=== PATIENT | male | born 1985 | race Caucasian/White ===

== ENCOUNTER 2020-04-03 11:03 | Day surgery (SDC) | payer BC ==
[2020-04-02 15:38] LABS: Absolute Lymphocytes (CBC) 2.2 K/uL (0.7-4.9); Basophils % 0.7 % (0-1.3); Hematocrit 49.5 % (39.6-49.0); Lymphocytes % 21.5 % (15.3-44.8); MPV 8.7 fL (7.6-11.3); RBC Red Blood Cell Count 5.64 M/uL (4.33-5.43)
[2020-04-02 16:02] LABS: Albumin 3.9 g/dL (3.4-5.0); Bilirubin Direct 0.2 mg/dL (0-0.2); Bilirubin Total 0.8 mg/dL (0.2-1.0); Potassium 3.9 mmol/L (3.5-5.1); Protein, Total 7.9 g/dL (6.4-8.2)
--- OUTSIDE RECORDS SUMMARY | 2020-04-03 11:28 | XMS REPORT | Summary of Care ---
:1985 Author Organization [facility] Address [address] [place] [address] Care Team Providers Name Role Phone Aayush Abbott MD Primary Care Provider Reason for Visit Reason Comments Refill Request Encounter Details Date Type Department Care Team Description 01/06/2020 Refill [facility] Pediatric and Deep Cope MD Refill Request Adult Primary Care- [address] [place] [address] [place] [address], [address] [place] [address] Allergies No Known Allergiesdocumented as of this encounter (statuses as of 01/06/2020) Medications Medication Sig Dispensed Refills Start Date End Date Status amphetamine-dext Take 1 30 capsule 0 01/06/2020 A ctive roamphetamine capsule by (ADDERALL XR) 30 mouth every mg 24 hr morning. capsuleIndicatio ns: Attention deficit disorder (ADD) in adult amphetamine-dext Take 1 30 capsule 0 12/03/2019 D iscontinued roamphetamine capsule by 0 (Reor harriet) (ADDERALL XR) 30 mouth every mg 24 hr morning. capsuleIndicatio ns: Attention deficit disorder (ADD) in adult documented as of this encounter (statuses as of 01/06/2020) Active Problems Not on filedocumented as of this encounter (statuses as of 01/06/2020) Immunizations Name Administration Dates Next Due Td 10/10/2015 documented as of this encounter Social History Tobacco Use Types Packs/Day Years Used Date Never Smoker Smokeless Tobacco: Current User Snuff Alcohol Use Drinks/Week oz/Week Comments Not Currently Sex Assigned at Date Recorded Not on file documented as of this encounter Last Filed Vital Signs Not on filedocumented in this encounter Plan of Treatment Health Maintenance Due Date Last Done Comments VARICELLA VACCINES (1 of 2 - 1987 2-dose childhood series) DTaP,Tdap,and Td Vaccines (1 - 2005 10/10/2015 Tdap) INFLUENZA VACCINE (#1) 2020 Depression Screening 03/20/2020 03/20/2019 PNEUMOCOCCAL 0-64 YEARS COMBINED Aged Out No longer eligible based on SERIES patient's age to complete this topic documented as of this encounter Results Not on filedocumented in this encounter Visit Diagnoses Diagnosis Attention deficit disorder (ADD) in adul t documented in this encounter Insurance Payer Benefit Plan Subscriber ID Effective Dates Phone Address Type / Group BCBS [facility] [id number] 2017-August [phone] [address] PPO/POS [place] - OUT OF t 7 [id number] [place] [address] documented as of this encounter
--- OUTSIDE RECORDS SUMMARY | 2020-04-03 11:28 | XMS REPORT | Continuity of Care Document ---
:1985 Author Organization [facility] t Address [address] [place] [address] Care Team Providers Name Role Phone Milena SMITH, Aayush Attending Clinician Problems This patient has no known problems. Allergies, Adverse Reactions, Alerts This patient has no known allergies or adverse reactions. Medications This patient has no known medications. Procedures This patient has no known procedures. Encounters Start End Encounter Admission Attending Care Care Encounter Source Date/Time Date/Time Type Type Clinicians Facility Department ID 2020-03-30 2020-03-30 Office WOLFGANG Abbott [id number] 10:17:13 10:32:13 Visit [facility] [id number] Aayush Sharma [id number] Amairani [id number] nal 044 Office [address] One Results This patient has no known results.
--- OUTSIDE RECORDS SUMMARY | 2020-04-03 11:28 | XMS REPORT | Summary of Care ---
:1985 Author Organization [facility] Address [address] [place] [address] Care Team Providers Name Role Phone Aayush Abbott MD Primary Care Provider Reason for Visit Reason Comments Refill Request Encounter Details Date Type Department Care Team Description 02/06/2020 Refill [facility] Family Medicine Deep Brown MD Refill Request - [address] [place] [address] [place] [address] [phone] Allergies No Known Allergiesdocumented as of this encounter (statuses as of 02/06/2020) Medications Medication Sig Dispensed Refills Start Date End Date Status amphetamine-dext Take 1 30 capsule 0 02/06/2020 A ctive roamphetamine capsule by (ADDERALL XR) 30 mouth every mg 24 hr morning. capsuleIndicatio ns: Attention deficit disorder (ADD) in adult amphetamine-dext Take 1 30 capsule 0 01/06/2020 D iscontinued roamphetamine capsule by 0 (Reor harriet) (ADDERALL XR) 30 mouth every mg 24 hr morning. capsuleIndicatio ns: Attention deficit disorder (ADD) in adult documented as of this encounter (statuses as of 02/06/2020) Active Problems Not on filedocumented as of this encounter (statuses as of 02/06/2020) Immunizations Name Administration Dates Next Due Td 10/10/2015 documented as of this encounter Social History Tobacco Use Types Packs/Day Years Used Date Never Smoker Smokeless Tobacco: Current User Snuff Alcohol Use Drinks/Week oz/Week Comments Not Currently Sex Assigned at Date Recorded Not on file documented as of this encounter Last Filed Vital Signs Not on filedocumented in this encounter Miscellaneous Notes Telephone Encounter - Bev Salgado - 02/06/2020 10:40 AM CDT Last office visit 09/16/19 Last refill was amphetamine-dextroamphetamine (ADDERALL XR) 30 mg 24 hr capsule 30 capsule 0 01/06/2020 -- elephone Encounter - Tayla Rubio - 02/06/2020 10:13 AM CDTPt requesting name brand. documented in this encounter Plan of Treatment Health [...] Dates Phone Address Type / Group BCBS [facility] [id number] 2017-August [phone] [address] PPO/POS [place] - OUT OF t 7 [id number] [place] [address] documented as of this encounter
--- OUTSIDE RECORDS SUMMARY | 2020-04-03 11:29 | XMS REPORT | Summary of Care ---
:1985 Author Organization [facility] Address [address] [place] [address] Care Team Providers Name Role Phone Aayush Abbott MD Primary Care Provider Reason for Referral (Routine) Status Reason Specialty Diagnoses / Procedures Referred By Luis bhaktaerred To Contact Contact New Request Diagnoses Calculus of gallbladder with acute cholecystitis without obstruction Deep Abbott [place], Procedures CONSULT/REFERRAL GENERAL SURGERY MD LUIS Looney [address] [place] [address] [place] [address] Sam 2.100 Phone: Constance Barnes [phone] Fax: Reason for Visit Reason [facility] Hospital F/U kidney and gallbladder stone s Kidney Stones GALLBLADDER Encounter Details Date Type Department Care Team Description 03/30/2020 Office Visit [facility] Family Deep Abbott Calculu s of gallbladder with acute cholecystitis without obstruction (Primary Dx); Medicine - Zachary Looney MD Kidney stone on right side [address] [place] [address] [place] [phone] Allergies No Known Allergiesdocumented as of this encounter (statuses as of 03/30/2020) Medications Medication Sig Dispensed Refills Start Date End Date Status ADDERALL XR 30 mg 24 hr Take 1 capsule 30 capsule 0 03/11/2020 Active capsuleIndications: by mouth every Attention deficit morning. Fill disorder (ADD) in adult Brand Name Only ciprofloxacin HCl 500 TK 1 T PO BID 0 03/24/2020 Active mg tablet ketorolac 10 mg tablet TK 1 T PO Q 8 H 0 03/24/2020 Active PRF PAIN ondansetron 4 mg DIS 1 T ON THE 0 03/24/2020 Active disintegrating tablet TONGUE TID PRF NAUSEA tamsulosin 0.4 mg 24 hr TK 1 C PO QD 0 03/24/2020 Active capsule documented as of this encounter (statuses as of 03/30/2020) Active Problems Not on filedocumented as of this encounter (statuses as of 03/30/2020) Immunizations Name Administration Dates Next Due Td 10/10/2015 documented as of this encounter Social History Tobacco Use Types Packs/Day Years Used Date Never Smoker Smokeless Tobacco: Current User Snuff Tobacco Cessation: Ready to Quit: No; Co unseling Given: Yes Alcohol Use Drinks/Week oz/Week Comments Not Currently Sex Assigned at Date Recorded Not on file COVID-19 Exposure Response Date Recorded In the last month, have you been in contact with No / Unsure 03/30/2020 10:28 AM CDT someone who was confirmed or suspected to have Coronavirus / COVID-19? documented as of this encounter Last Filed Vital Signs Vital Sign Reading Time Taken Comments Blood Pressure 147/110 03/30/2020 10:26 AM CDT Pulse - - Temperature - - Respiratory Rate - - Oxygen Saturation - - Inhaled Oxygen Concentration - - Weight 105.2 kg (232 lb) 03/30/2020 10:26 AM CDT Height 172.7 cm (5' 8") 03/30/2020 10:26 AM CDT Body Mass Index 35.28 03/30/2020 10:26 AM CDT documented in this encounter Progress Deep Canas MD - 03/30/2020 10:30 AM CDT CC: follow up ER from gallstones and kidney stone Corby is a 35 year old male Abdominal Pain Pain location: RUQ Pain quality: aching Pain quality: no pressure Pain radiates to: R flank Pain severity: Severe Duration: 6 days Timing: Intermittent Associated symptoms: belching, nausea and vomiting Associated symptoms: no diarrhea No Known Allergies Current Outpatient Medications Medication Sig Dispense Refill ADDERALL XR 30 mg 24 hr capsule Take 1 capsule by mouth every morning. Fill Brand Name Only 30 capsule 0 No current facility-administered medications for this visit. Past Medical History: Diagnosis Date ADHD (attention deficit hyperactivity disorder) No past surgical history on file. Social History Socioeconomic History Marital status: Single Spouse name: Not on file Number of children: Not on file Years of education: Not on file Highest education level: Not on file Occupational History Not on file Social Needs Financial resource strain: Not on file Food insecurity Worry: Not on file Inability: Not on file Transportation needs Medical: Not on file Non-medical: Not on file Tobacco Use Smoking status: Never Smoker Smokeless tobacco: Current User Types: Snuff Substance and Sexual Activity Alcohol use: Not Currently Drug use: Never Sexual activity: Yes Partners: Female Lifestyle Physical activity Days per week: Not on file Minutes per session: Not on file Stress: Not on file Relationships Social connections Talks on phone: Not on file Gets together: Not on file Attends sabianism service: Not on file Active member of club or organization: Not on file Attends meetings of clubs or organizations: Not on file Relationship status: Not on file Intimate partner violence Fear of current or ex partner: Not on file Emotionally abused: Not on file Physically abused: Not on file Forced sexual activity: Not on file Other Topics Concern Not on file Social History Narrative Works in the [employer] Family History Problem Relation Age of Onset Diabetes Father Review of Systems Gastrointestinal: Positive for abdominal pain, nausea and vomiting. Negative for diarrhea. BP (!) 147/110 (BP Location: Left arm, Patient Position: Sitting, BP CUFF SIZE: Adult Large) | Ht 5' 8" (1.727 m) | Wt 232 lb (105.2 kg) | BMI 35.28 kg/m Physical Exam Constitutional: He is oriented to person, place, and time. He appears well- developed and well-nourished. HENT: Head: Normocephalic and atraumatic. Eyes: Conjunctivae are normal. Neck: Normal range of motion. Neck supple. No JVD present. No tracheal deviation present. No thyromegaly present. Cardiovascular: Normal rate, regular rhythm, normal heart sounds and intact distal pulses. Exam reveals no gallop and no friction rub. No murmur heard. Pulmonary/Chest: Effort normal and breath sounds normal. No respiratory distress. He has no wheezes.He has no rales. He exhibits no tenderness. Abdominal: Soft. Bowel sounds are normal. He exhibits no distension and no mass. There is no abdominal tenderness. There is no rebound and no guarding. Musculoskeletal: Normal range of motion. General: No tenderness or edema. Lymphadenopathy: He has no cervical adenopathy. Neurological: He is alert and oriented to person, place, and time. Skin: Skin is warm and dry. Diagnosis: 1. Calculus of gallbladder with acute cholecystitis without obstruction CONSULT/REFERRAL GENERAL SURGERY 2. Kidney stone on right side Follow up: prn Patient Care Team: Deep Abbott MD as PCP - General ([facility]-FAMILY MEDICINE) Plan of care, desired health behaviors, goals,& medication discussed with patient. Education resources & self management tools provided and reviewed with AVS. Patient/guardian/family verbalized understanding & agrees to plan of care. Barriers to care: None Ability to manage care: Good documented in this encounter Plan of Treatment Date Type Specialty Care Team Description 07/14/2020 Office Visit Family Medicine Deep Abbott MD [address] [place] [address] [phone] Health Maintenance Due Date Last Done Comments VARICELLA VACCINES (1 of 2 - 1987 2-dose childhood series) DTaP,Tdap,and Td Vaccines (1 - 2005 10/10/2015 Tdap) INFLUENZA VACCINE (#1) 2020 Depression Screening 03/11/2021 03/11/2020 PNEUMOCOCCAL 0-64 YEARS COMBINED Aged Out No longer eligible based on SERIES patient's age to complete this topic documented as of this encounter Results Not on filedocumented in this encounter Visit Diagnoses Diagnosis Calculus of gallbladder with acute lupis cystitis without obstruction - Primary Calculus of gallbladder with acute lupis cystitis, without mention of obstruction Kidney stone on right side Calculus of kidney documented in this encounter Insurance Payer Benefit Plan Subscriber ID Effective Dates Phone Address Type / Group [facility] [id number] 2017-August [phone] [address] PPO/POS [place] - OUT OF t 7 [id number] [place] [address] documented as of this encounter
--- OUTSIDE RECORDS SUMMARY | 2020-04-03 11:29 | XMS REPORT | Summary of Care ---
:1985 Author Organization [facility] Address [address] [place] [address] Care Team Providers Name Role Phone Aayush Abbott MD Primary Care Provider Reason for Referral (Routine) Status Reason Specialty Diagnoses / Procedures Referred By Luis bhaktaerred To Contact Contact New Request Diagnoses Calculus of gallbladder with acute cholecystitis without obstruction Deep Abbott [place], Procedures CONSULT/REFERRAL GENERAL SURGERY MD LUIS Looney [address] [place] [address] [place] [address] Sam 2.100 Phone: Constance Barnes [phone] Fax: Reason for Visit Reason [facility] Hospital F/U kidney and gallbladder stone s Kidney Stones GALLBLADDER Encounter Details Date Type Department Care Team Description 03/30/2020 Office Visit [facility] Family Deep Abbott Calculu s of gallbladder with acute cholecystitis without obstruction (Primary Dx); Medicine - Zachary Looney MD Kidney stone on right side [address] [place] [address] [place] [phone] Allergies No Known Allergiesdocumented [...] file Gets together: Not on file Attends anglican service: Not on file Active member of [...] file Social History Narrative Works in the [employer] Family History Problem Relation Age of Onset [...] Office Visit Family Medicine Deep Abbott MD [address] [place] [phone] Health Maintenance Due Date Last Done [...] Effective Dates Phone Address Type / Group [facility] [id number] 2017-August [phone] [address] PPO/POS [place] - OUT OF t 7 [id number] [place] [address] documented as of this encounter
--- OUTSIDE RECORDS SUMMARY | 2020-04-03 11:29 | XMS REPORT | Summary of Care ---
:1985 Author Organization [facility] Address [address] [place] [address] Care Team Providers Name Role Phone Aayush Abbott MD Primary Care Provider Reason for Visit Reason Comments Refill Request Encounter Details Date Type Department Care Team Description 03/06/2020 Refill [facility] Family Medicine Deep Brown MD Refill Request - [address] [place] [address] [place] [address] [phone] Allergies No Known Allergiesdocumented as of this encounter (statuses as of 03/09/2020) Medications Medication Sig Dispensed Refills Start Date End Date Status amphetamine-dextroamp Take 1 capsule by 30 capsule 0 0 Active hetamine (ADDERALL mouth every XR) 30 mg 24 hr morning. capsuleIndications: Attention deficit disorder (ADD) in adult documented as of this encounter (statuses as of 03/09/2020) Active Problems Not on filedocumented as of this encounter (statuses as of 03/09/2020) Immunizations Name Administration Dates Next Due Td [...] Notes Telephone Encounter - Bev Salgado - 03/09/2020 10:58 AM CDT Last refill was amphetamine-dextroamphetamine (ADDERALL XR) 30 mg 24 hr capsule 30 capsule 0 Last office visit 09/16/19 elephone Encounter - Sonali Gunderson - 03/06/2020 2:11 PM CDTPatient is requesting name brand medication for insurance purposes. documented in this encounter Plan of Treatment Health Maintenance Due Date Last Done Comments VARICELLA VACCINES (1 of - 1987 2-dose childhood series) DTaP,Tdap,and Td [...] Dates Phone Address Type / Group BCBS [facility] [id number] 2017-August [phone] [address] PPO/POS [place] - OUT OF t 7 [id number] [place] [address] documented as of this encounter
--- OUTSIDE RECORDS SUMMARY | 2020-04-03 11:29 | XMS REPORT | Summary of Care ---
:[address] [facility] Address [address] [place] [address] Care Team Providers Name Role Phone Aayush Abbott MD Primary Care Provider Reason for Visit Reason Comments Follow-up Adderall Follow up Encounter Details Date Type Department Care Team Description 03/11/2020 Office Visit [facility] Family Deep Abbott on deficit Medicine - [place] MD Aayush disorder (ADD) in [address] [place] [address] DR garcía (Primary Dx) [place] [phone] Allergies No Known Allergiesdocumented as of this encounter (statuses as of 03/11/2020) Medications Medication Sig Dispensed Refills Start Date End Date Status ADDERALL XR 30 Take 1 30 capsule 0 03/11/2020 Act jeanmarie mg 24 hr capsule by capsuleIndicatio mouth every ns: Attention morning. Fill deficit disorder Brand Name (ADD) in adult Only amphetamine-dext Take 1 30 capsule 0 02/06/2020 D iscontinued roamphetamine capsule by 0 (Reor harriet) (ADDERALL XR) 30 mouth every mg 24 hr morning. capsuleIndicatio ns: Attention deficit disorder (ADD) in adult documented as of this encounter (statuses as of 03/11/2020) Active Problems Not on filedocumented as of this encounter (statuses as of 03/11/2020) Immunizations Name Administration Dates Next Due Td 10/10/2015 documented as of this encounter Social History Tobacco Use Types Packs/Day Years Used Date Never Smoker Smokeless Tobacco: Current User Snuff Alcohol Use Drinks/Week oz/Week Comments Not Currently Sex Assigned at Date Recorded Not on file documented as of this encounter Last Filed Vital Signs Vital Sign Reading Time Taken Comments Blood Pressure 143/105 03/11/2020 10:29 AM CDT Pulse 86 03/11/2020 10:28 AM CDT Temperature - - Respiratory Rate - - Oxygen Saturation - - Inhaled Oxygen Concentration - - Weight 103.4 kg (228 lb) 03/11/2020 10:28 AM CDT Height 172.7 cm (5' 8") 03/11/2020 10:28 AM CDT Body Mass Index 34.67 03/11/2020 10:28 AM CDT documented in this encounter Progress Notes Deep Abbott MD - 03/11/2020 10:30 AM CDT Patient is here for interval re-evaluation of therapy for Attention deficit disorder (ADD) in adult [F98.8] Efficacy of medication is Good, work performance Good ROS: Headaches: No Insomnia: No Appetite change: No Mood: No concerns Tics or movement disorders: No Behavior issues: No Socially inappropriate behavior: No Other adverse effects: No Chest pain or shortness of breath with exercise: No Outpatient Medications Marked as Taking for the 03/11/20 encounter (Office Visit) with William Abbott MD Medication Sig Dispense Refill ADDERALL XR 30 mg 24 hr capsule Take 1 capsule by mouth every morning. Fill Brand Name Only 30 capsule 0 BP (!) 143/105 | Pulse 86 | Ht 5' 8" (1.727 m) | Wt 228 lb (103.4 kg) | BMI 34.67 kg/m General: alert, active, in no acute distress Head: normocephalic Eyes: pupils equal, round, reactive to light, conjunctiva clear and conjugate gaze Ears: TM's normal, external auditory canals normal Nose: clear, no discharge Oral Pharynx: moist mucous membranes without erythema, exudates or petechiae, dentition normal, normal for age Neck: supple and no lymphadenopathy Lungs: clear to auscultation Heart: regular rate and rhythm, no murmur Abdomen: normal bowel sounds, soft, non-distended, no hepatosplenomegaly or masses Neuro: normal without focal findings Skin: warm, no rashes, no ecchymosis ASSESSMENT: 1. Attention deficit disorder (ADD) in adult ADDERALL XR 30 mg 24 hr capsule Follow-up in 4 months Take medication as directed Call if any side effects such as chest pain, shortness of breath, tics, or worsening behavior Patient/caregiver expressed understanding and is in agreement with plan of care 10 of 15 minute visit spent discussing ADHD, pathophysiology, treatment, side effects of medications, possible need to adjust dosage and/or change type of medication, follow up intervals. documented in this encounter Plan of Treatment Date Type Specialty Care Team Description 07/14/2020 Office Visit Family Medicine Deep Abbott MD [address] [place] [phone] Health Maintenance Due Date Last Done Comments VARICELLA VACCINES ( of 2 - 1987 2-dose childhood series) DTaP,Tdap,and Td Vaccines (1 - 2005 10/10/2015 Tdap) INFLUENZA VACCINE (#1) 2020 Depression Screening 03/11/2021 03/11/2020 PNEUMOCOCCAL 0-64 YEARS COMBINED Aged Out No longer eligible based on SERIES patient's age to complete this topic documented as of this encounter Results Not on filedocumented in this encounter Visit Diagnoses Diagnosis Attention deficit disorder (ADD) in adul t - Primary documented in this encounter Insurance Payer Benefit Plan Subscriber ID Effective Dates Phone Address Type / Group [facility] [id number] 2017-August [phone] [address] PPO/POS [place] - OUT OF t 7 [id number] [place] [address] documented as of this encounter
--- OUTSIDE RECORDS SUMMARY | 2020-04-03 11:29 | XMS REPORT | Summary of Care ---
:1985 Author Organization [facility] Address [address] [place] [address] Care Team Providers Name Role Phone Aayush Abbott MD Primary Care Provider Reason for Visit Reason Comments Follow-up Adderall Follow up Encounter Details Date Type Department Care Team Description 03/11/2020 Office Visit [facility] Family Deep Abbott on deficit Medicine - [place] MD Aayush disorder (ADD) in [address] [place] [address] DR garcía (Primary Dx) [place] [phone] Allergies No Known Allergiesdocumented as of this [...] Office Visit Family Medicine Deep Abbott MD [address] [place] [phone] Health Maintenance Due Date Last [...] Effective Dates Phone Address Type / Group [facility] [id number] 2017-August [phone] [address] PPO/POS [place] - OUT OF t 7 [id number] [place] [address] documented as of this encounter
[2020-04-03] MEDS ORDERED: MIDAZOLAM HCL 2 MG/2 ML INJ ONE (11:51)
[2020-04-03] MEDS ORDERED: FENTANYL CITR 100 MCG/2 ML ONE ×2 (11:51→13:27)
[2020-04-03] MEDS ORDERED: ROCURONIUM 50 MG/5 ML VIAL IV ONE (11:51)
[2020-04-03] MEDS ORDERED: LIDOCAINE 1% MPF 5 ML VIAL ONE (11:51)
[2020-04-03] MEDS ORDERED: propofoL 200 MG/20 ML VIAL IV ONE (11:51)
[2020-04-03] MEDS ORDERED: Ringers Lactate 1,000 ML IV ONE (11:53)
[2020-04-03] MEDS ORDERED: CEFOXITIN/SWI 1gm 1 GM/10 ML SYR ONE (13:04)
[2020-04-03] MEDS ORDERED: KETOROLAC 30 MG/ML INJ ONE (13:29)
[2020-04-03] MEDS ORDERED: NEOSTIGMINE 1 MG/ML -5 ML ONE (13:38)
[2020-04-03] MEDS ORDERED: GLYCOPYRROLATE 0.2 MG/ML SYR ONE (13:38)
--- NOTE | 2020-04-03 13:47 | P.BOP ---
Preoperative diagnosis: acute cholecystitis, symptomatic cholelithiasis, umbilical hernia Postoperative diagnosis: same Primary procedure: Laparoscopic cholecystectomy Secondary procedure: Open repair of umbilical hernia Inventory Worker: Gloria Ruiz) Estimated blood loss: <10cc Specimen: Gb, sac Findings: as above Anesthesia: General Complications: None Transferred to: Recovery Room Condition: Good
[2020-04-03] MEDS ORDERED: Mastisol Adhesive Liq ONE (13:54)
[2020-04-03] MEDS: MEPERIDINE HCL 25 MG/ML SYR ONE ×4 (14:09→14:41)
[2020-04-03] MEDS: HYDROMORPHONE HCL 1 MG/ML INJ ONE ×4 (14:10→14:30)
[2020-04-03] MEDS ORDERED: HYDROCODONE/APAP 5/325 MG TAB ONE (15:19)
[2020-04-03 15:29] VITALS: BP 127/85; TEMP 97; O2SAT 95
--- NOTE | 2020-04-03 22:15 | OP ---
Date of Procedure: 04/03/2020 Surgeon: Gaurav Umanzor MD Roller Presser Operator: REGINA Quintanilla. Preoperative Diagnoses: Acute cholecystitis, symptomatic cholelithiasis, umbilical hernia. Postoperative Diagnoses: Acute cholecystitis, symptomatic cholelithiasis, umbilical hernia. Procedure: 1.Laparoscopic cholecystectomy. 2.Open repair of umbilical hernia. Specimen: Gallbladder. Anesthesia: General plus local. Indications: This is the case of a 35-year-old patient, who comes to us with above diagnosis. Fully explained the benefits, alternatives, and risks of laparoscopic possible open cholecystectomy and re pair of umbilical hernia, which include, but not limited to infection, bleeding, damage to adjacent s tructures, anesthesia complication, choledocholithiasis, bile leak, pancreatitis, PA, and even . He also understands this may not relieve any symptoms. He might need more than one surgical interv ention. He understood and signed a consent. Procedure In Detail: The patient was brought to the operating room and placed in supine position. A nesthesia was done without complication. Abdominal area was prepped and draped in a sterile fashion. Marcaine 0.5% was injected for local anesthetic after time-out. After that, an incision was made i n the infraumbilical region. Incision was carried down to subcutaneous tissue. We noticed umbilical hernia present. Umbilical hernia was carefully identified. Hernia sac opened, noticed some omentum present that was carefully reduced into the abdominal cavity. The patient had incarcerated omentum there. After reduced that incarceration back in the abdominal cavity after fully inspecting and kevyn ng sure it is viable, then we proceeded to remove the hernia sac. This incision was extended to allo w the Lizeth trocar to place. Then, Vicryl #1 placed inside of the fascia. Lizeth trocar was carefu lly introduced. No bleeding was obtained. I placed 3 more trocars 5 mm each one of them under direc t visualization in the right upper quadrant. Pneumoperitoneum was obtained already. A grasper was p laced in the fundus of the gallbladder and the gallbladder was distended, so we have to aspirate that with the endo needle under direct visualization. Needle was removed once again under direct visuali zation. At that moment, grasper in the fundus of the gallbladder and another grasper in the infundib ulum were retracted and the gallbladder in the inferolateral fashion exposing the triangle of Calot a nd obtaining critical view. Cystic duct and cystic artery were clearly isolated, freed circumferenti ally, and a connection between those and the gallbladder were clearly identified. I proceeded to lig ate those by using at least 3 clips proximal, 1 clip distal, ligation in the middle. Same was done w ith the cystic artery. No bile leak. No bleeding. The gallbladder was removed from the liver using Bovie cauterizer and removed from abdominal cavity using EndoCatch through umbilical incision. The area was inspected once again. No bile leak. No bleeding. The clips were intact. At that moment, I proceeded to remove the trocars under direct vision, deflated pneumoperitoneum, closed the fascia a nd umbilical hernia with #1 Vicryl. Irrigated subcutaneous tissue, closed with 3-0 chromic, and skin in a subcuticular fashion with 3-0 chromic. Steri-Strips placed on top. The patient tolerated the procedure well. The patient was sent to recovery in stable condition. Disposition: Home. Activity: As tolerated. No heavy lifting. Plan: Follow up in my office in 1 week. Call for appointment at [phone]. Keep area dry for 48 [address] rs, then may shower. Keep Steri-Strips intact. Medications: Include hydrocodone q.4 hours p.r.n. pain, Bactrim DS p.o. b.i.d. MARIA TERESA/JUAN Voice ID: [id number] Report ID: [id number]
== END 2020-04-03 15:55 | disposition home or self-care (01) ==
LOC: OR 11:03
PROVIDERS: ATTEND Surgery
PROC: 0FT44ZZ Resection of Gallbladder, Percutaneous Endoscopic Approach (ICD-10-PCS; principal; 2020-04-03 12:30)
PROC: 0WQF0ZZ Repair Abdominal Wall, Open Approach (ICD-10-PCS; 2020-04-03 12:30)
DX: K80.12 Calculus of gallbladder with acute and chronic cholecystitis without obstruction (principal); K42.0 Umbilical hernia with obstruction, without gangrene; F90.9 Attention-deficit hyperactivity disorder, unspecified type; Z20.828 Contact with and (suspected) exposure to other viral communicable diseases
CPT/HCPCS: 85025; 80048; 36415; 82150; 80076; 88302; 88304; 83690; 47562; 49585; U0002; J2704; J2250; J3010 ×2; J2175 ×2; J1170 ×2; J2710; J7120